=== PATIENT | female | born 1980 | race Caucasian/White ===

== ENCOUNTER 2018-10-06 22:33 | Emergency (ER) | payer BC, SELFPAY ==
[2018-10-06 22:37] VITALS: BP 149/79; PULSE 85; RESP 16; TEMP 36.4; O2SAT 99
--- NOTE | 2018-10-06 23:09 | ED.GENADUL_ITS ---
Discharge Plan Disposition Patient Disposition: HOME Condition: Stable Discharge Details Chief Complaint: EarProblem Clinical Impression: Acute right otitis media, Acute suppur right otitis media w/spontan rupture of tympanic membrane Primary Care Provider: Aissatou De Leon ED Provider: Rich Cuellar Home Meds and New Rx's Prescriptions: New amoxicillin 500 mg tablet 500 mg PO TID Qty: 30 RF: 0 No Action acetaminophen [Tylenol] 325 MG tablet 325 - 650 mg PO PRN RF: 0 prochlorperazine maleate 5 MG tablet 5 mg PO Q8H PRN Qty: 90 RF: 6 magnesium 200 MG tablet 2 tab-cap PO DAILY RF: 0 cholecalciferol (vitamin D3) [Vitamin D3] 2,000 UNIT capsule 1 cap PO DAILY RF: 0 levothyroxine 50 MCG tablet 50 mcg PO DAILY Qty: 90 RF: 4 sumatriptan succinate [Imitrex] 50 MG tablet 50 mg PO PRN PRNRF: 0 Discharge Instructions Instructions: Otitis Media (ED) Additional Instructions: Follow up with your primary care provider this week for recheck if you have pain you can take 1000mg tylenol and 600mg ibuprofen every 6 hours for pain as needed if you have severe worsening of pain or new symptoms such as difficulty breathing return to the emergency department Medical Decision Making 38 yo female comes in with few days of nasal congestion and tonight had right ear pain then drainage. Has drainage from the right ear and ruptured tm with erythema, suspect she had acute otitis media and had rupture of this. No findings to suggest otitis exeterna or mastoiditis. Will start abx, advised f/u with pcp and return if worsening Differential Diagnosis acute otitis media, ruptured tm HPI General Mode of arrival: ambulatory . Date/Time Provider Initiated Documentation: 10/06/18 22:38 . Limitations to Documentation: no limitations . Information obtained by: patient . History of Present Illness 38 year old F presents to the emergency department with the chief complaint of right ear pain, described as moderate, with intensity rated at 5. Quality is described as aching, Patient started experiencing this hour(s) (4) and it has been constant. No relieving factors improve symptom(s), No exacerbating factors reported . Patient did receive the following treatments prior to arrival, none Related Data Home Medications Medication Instructions Recorded Confirmed acetaminophen [Tylenol] 325 - 650 mg PO PRN tab-cap 11/03/14 10/06/18 prochlorperazine maleate 5 mg PO Q8H PRN #90 tab-cap 11/11/14 10/06/18 sumatriptan succinate [Imitrex] 50 mg PO PRN PRN 01/12/16 10/06/18 cholecalciferol (vitamin D3) 1 cap PO DAILY 03/03/17 10/06/18 [Vitamin D3] magnesium 2 tab-cap PO DAILY 03/03/17 10/06/18 levothyroxine 50 mcg PO DAILY #90 tab 09/19/17 10/06/18 amoxicillin 500 mg PO TID #30 tab 10/06/18 Previous Rx's Medication Instructions Recorded levothyroxine 50 mcg PO DAILY #90 tab 09/19/17 amoxicillin 500 mg PO TID #30 tab 10/06/18 Allergies Allergy/AdvReac Type Severity Reaction Status Date / Time BEE STINGS Allergy Severe ANAPHYLAXSI Uncoded 10/06/18 22:39 S Review of Systems Review of Systems All systems reviewed & are unremarkable except as noted in HPI and below Constitutional Denies weakness Eyes Denies loss of vision Cardiovascular Denies chest pain and Denies dyspnea Respiratory Denies dyspnea Gastrointestinal Denies abdominal pain, Denies nausea and Denies vomiting Genitourinary Denies dysuria Neurologic Denies loss of vision and Denies weakness Endocrine Denies heat intolerance PFSH Medical History History of kidney stones Hx pulmonary embolism Migraine Surgical History Ligation of fallopian tube Family History Mother No problems noted. Father Essential hypertension Migraine Hyperlipidemia Social History Smoking/Tobacco Use Status: Never Exam Const General: no acute distress Orientation: alert HENMT Head: normal to inspection Ears: external ears normal General nose exam: external nose normal Mouth: moist mucous membranes Eyes General: appearance normal, both eyes and all related structures Neck Neck: normal visual inspection Resp Effort & Inspection: normal respiratory effort and able to speak in complete sentences Cardio Rate: regular rate Skin General skin exam: no rashes or lesions noted Neuro General: alert and oriented x3 Extrem General: normal to inspection Psych Mental Status: mental status grossly normal
[2018-10-06] MEDS: Amoxicillin 500 MG CAP PO (23:11)
== END 2018-10-06 23:21 | disposition home or self-care (01) ==
LOC: ER 23:25
PROVIDERS: Emergency Provider Emergency Medicine; PCP Nurse Practitioner Family
DX: H66.011 Acute suppurative otitis media with spontaneous rupture of ear drum, right ear (principal)
CPT/HCPCS: 99283

== ENCOUNTER 2018-11-01 13:39 | Outpatient (REF) | payer BC, SELFPAY | END 2018-11-01 13:59 | LOC: LBN 13:39 | PROVIDERS: PCP Nurse Practitioner Family; Visit Provider Otolaryngology | DX: H66.001 Acute suppurative otitis media without spontaneous rupture of ear drum, right ear (principal) | CPT/HCPCS: 87070 ==

== ENCOUNTER 2020-07-20 16:16 | Outpatient (REF) | payer OTHER, SELFPAY ==
[2020-07-20 18:12] LABS: HCT 38.8 % (36.0-46.0); MCH 29.5 pg (27.0-33.0); MCHC 33.5 % (32.0-36.0); MCV 88.2 fL (80-95); MPV 10.9 fL (8.0-11.0); Platelet Count 243 10^3/uL (130-400); RDW 12.2 % (11.7-14.6); RDW-SD 39.4 fL; WBC 7.03 10^3/uL (4.4-10.8)
[2020-07-20 18:34] LABS: ALT 34 U/L (14-59); AST 17 U/L (15-37); Albumin 4.1 g/dL (3.4-5.0); Alkaline Phosphatase 49 U/L (46-116); Anion Gap 7.4 mmol/L (3-11); BUN 11 mg/dL (7-18); Bilirubin, Total 0.6 mg/dL (0.2-1.0); CO2 28.6 mmol/L (21.0-32.0); CREATININE 0.65 mg/dL (0.55-1.02); Calcium 9.3 mg/dL (8.5-10.1); Chloride 103 mmol/L (98-107); Glucose 88 mg/dL (74-106); Potassium 3.7 mmol/L (3.5-5.1); Sodium 139 mmol/L (136-145); TSH (W/Ref FT4) 2.33 uIU/mL (0.36-3.74); Total Protein 7.2 g/dL (6.4-8.2)
== END 2020-07-20 16:36 ==
LOC: NCHCN 16:16
PROVIDERS: PCP Nurse Practitioner Family; Visit Provider Nurse Practitioner Family
DX: B35.1 Tinea unguium (principal); N91.2 Amenorrhea, unspecified; G47.00 Insomnia, unspecified; E03.9 Hypothyroidism, unspecified
CPT/HCPCS: 80053; 85027; 84443

== ENCOUNTER 2020-11-12 06:46 | Emergency (ER) | payer OTHER, SELFPAY ==
--- NOTE | 2020-11-12 06:53 | W.ED.GENAD ---
Discharge Plan Disposition Patient Disposition: HOME Condition: Stable Discharge Details Clinical Impression: Cervical paraspinal muscle spasm Primary Care Provider: Kristie Will ED Provider: Satish Drew Home Meds and New Rx's Prescriptions: New methocarbamol 500 mg tablet 500 - 1,000 mg PO Q6H PRN (Reason: Back pain or spasm) Qty: 14 RF: 0 Continued acetaminophen [Tylenol] 325 MG tablet 325 - 650 mg PO PRN RF: 0 prochlorperazine maleate 5 MG tablet 5 mg PO Q8H PRN Qty: 90 RF: 6 magnesium 200 MG tablet 2 tab-cap PO DAILY RF: 0 cholecalciferol (vitamin D3) [Vitamin D3] 2,000 UNIT capsule 1 cap PO DAILY RF: 0 sumatriptan succinate [Imitrex] 50 MG tablet 50 mg PO PRN PRNRF: 0 Discharge Instructions Instructions: Spasmodic Torticollis (ED) Additional Instructions: Your CAT scan did not show any acute abnormalities. May take methocarbamol, as prescribed, as needed for muscle pain and spasm. Do not take alcohol or other drugs with this medication. Tylenol and ibuprofen as needed for pain. Warm, moist heat to area and gentle massage. Return to the ER for a fever, swelling, difficulty with speech or voice, or any other acute concerns. Stand Alone Forms: Physical Therapy Referral, Work Release Medical Decision Making <Gerald Porter DO - Last Filed: 11/12/20 07:14> 40-year-old female with past medical history of previous pulmonary embolism, kidney stones, migraine, tubal ligation presents today for evaluation of left neck pain. Patient states for the last day and 1/2 to 2 days she has had a gradual worsening of left-sided neck pain and stiffness, she has been massaging it and taking ibuprofen but this has not changed her symptoms. Over the last 12 hours it has become severe, with debilitating pain if she moves her neck in any direction. Pain is located in the left neck extending from the mid sternocleidomastoid to the base of the sternocleidomastoid. She denies any ear pain, vision changes, fever, chills, upper extremity weakness, numbness tingling. No other complaints at this time. No history of symptoms like this in the past. Physical exam demonstrates a tender but not spasmed sternocleidomastoid on the left. Notable pain in the SCM with movement of the neck in any direction, no meningeal mass, or signs of Ludewig's angina. No erythema. Differential includes atypical muscle spasm, or underlying mass or abscess. We will get a CT scan of the neck, give Valium, Toradol, monitor closely and reassess. <Satish Drew MD - Last Filed: 11/12/20 08:31> Received signout from Dr. Porter. Patient improved and with less pain in her neck. She does have left-sided muscular neck spasm present. Her CAT scan was unremarkable for process. We will treat with methocarbamol, heat, physical therapy if needed in 2 days off work. She is stable for discharge to home. HPI <Gerald Porter DO - Last Filed: 11/12/20 07:14> General Date/Time Provider Initiated Documentation: 11/12/20 06:52. HPI Narrative: 40-year-old female with past medical history of previous pulmonary embolism, kidney stones, migraine, tubal ligation presents today for evaluation of left neck pain. Patient states for the last day and 1/2 to 2 days she has had a gradual worsening of left-sided neck pain and stiffness, she has been massaging it and taking ibuprofen but this has not changed her symptoms. Over the last 12 hours it has become severe, with debilitating pain if she moves her neck in any direction. Pain is located in the left neck extending from the mid sternocleidomastoid to the base of the sternocleidomastoid. She denies any ear pain, vision changes, fever, chills, upper extremity weakness, numbness tingling. No other complaints at this time. No history of symptoms like this in the past. Related Data Home Medications Medication Instructions Recorded Confirmed acetaminophen [Tylenol] 325 - 650 mg PO PRN tab-cap 11/03/14 11/12/20 prochlorperazine maleate 5 mg PO Q8H PRN #90 tab-cap 11/11/14 11/12/20 sumatriptan succinate [Imitrex] 50 mg PO PRN PRN 01/12/16 11/12/20 cholecalciferol (vitamin D3) 1 cap PO DAILY 03/03/17 11/12/20 [Vitamin D3] magnesium 2 tab-cap PO DAILY 03/03/17 11/12/20 methocarbamol 500 - 1,000 mg PO Q6H PRN #14 tab 11/12/20 Previous Rx's Medication Instructions Recorded methocarbamol 500 - 1,000 mg PO Q6H PRN #14 tab 11/12/20 Allergies Allergy/AdvReac Type Severity Reaction Status Date / Time BEE STINGS Allergy Severe ANAPHYLAXSI Uncoded 11/12/20 07:10 S General RITU: 4 Review of Systems <Gerald Porter DO - Last Filed: 11/12/20 07:14> All systems reviewed & are unremarkable except as noted in HPI and below PFSH <Gerald Porter DO - Last Filed: 11/12/20 07:14> Medical History (Updated 11/12/20 @ 08:28 by Satish Drew MD) History of kidney stones Hx pulmonary embolism Migraine Surgical History Ligation of fallopian tube Family History Mother No problems noted. Father Essential hypertension Migraine Hyperlipidemia Social History Smoking/Tobacco Use Status: Never Smoking risk assessment performed?: Yes Alcohol Intake: never Drug use: Never Substance use type: does not use Do you feel safe in your relationship?: Yes Exam <Gerald Porter DO - Last Filed: 11/12/20 07:14> Narrative Exam Narrative: 1.Const: Well-nourished, Well-developed, appearing stated age 2.Eyes: PERRL, no conjunctival injection, and symmetrical lids. 3.ENT: Atraumatic external nose and ears. Moist MM. Neck: Symmetric, trachea midline, No thyromegaly. No evidence of Ludewig's angina, no erythema in the posterior oropharynx. No abnormality in the tympanic membrane or ear canal. Mild tenderness throughout the entirety of the sternocleidomastoid muscle, notable pain with movement in any direction of the neck isolated to the sternocleidomastoid muscle. No nuchal rigidity or signs of meningismus. 4.CVS: +S1/S2, No murmurs or gallops. Peripheral pulses 2+ and equal in all extremities. Brisk capillary refill in all extremities. 5.RESP: Unlabored respiratory effort. Clear to auscultation bilaterally. No wheezes rales or rhonchi 6.GI: Soft, Nontender/Nondistended, No hepatosplenomegaly. No guarding or rebound. 7.MSK: Normocephalic/Atraumatic, Extremities w/o deformity or ttp No cyanosis or clubbing, Normal movement of all extremities, normal strength in the upper extremities. 8.Skin: Warm, Dry. No rashes or lesions. 9.Neuro: profiling machine set up operator II-XII grossly intact. Sensation grossly intact, no focal neurologic deficits. 10.Psych: (AAO) x3. Appropriate mood and affect Sign Out <Gerald Porter DO - Last Filed: 11/12/20 07:14> Sign Out Data: Sign Out Comment: Left neck pain/spasm, notably severe, given Valium, NSAIDs, CT scan to rule out mass Last updated by Gerald Porter DO at 11/12/20 07:43
[2020-11-12 06:54] VITALS: BP 161/78; PULSE 82; RESP 16; TEMP 36.5; O2SAT 99
[2020-11-12] MEDS: diazePAM 10 MG/2 ML SYR 5 MG IVP (07:20)
[2020-11-12] MEDS: Normal Saline 1,000 ML 1000 ML IV (07:20)
[2020-11-12] MEDS: Ketorolac 30 MG/ML VIAL IVP (07:25)
[2020-11-12] MEDS: ACETAMINOPHEN 1,000 MG/100 ML BTL 400 MG IVPB (07:32)
[2020-11-12 07:33] LABS: Abs Immature Grans 0.03 10^3/uL (0.0-0.06); Absolute Basophil Count 0.03 10^3/uL (0.0-0.2); Absolute Eosinophil Count 0.12 10^3/uL (0.0-0.7); Absolute Lymphocyte Count 1.52 10^3/uL (1.2-3.4); Absolute Monocyte Count 0.49 10^3/uL (0.1-0.8); Absolute Neutrophil Count 6.06 10^3/uL (1.2-6.7); Basophils % 0.4; Eosinophils % 1.5; HCT 42.7 % (36.0-46.0); Immature Grans % 0.4; Lymphocytes % 18.4; MCH 29.2 pg (27.0-33.0); MCHC 32.8 % (32.0-36.0); MCV 89.1 fL (80-95); MPV 10.4 fL (8.0-11.0); Monocytes % 5.9; Neutrophils % 73.4; Nucleated RBC 0 %; Platelet Count 235 10^3/uL (130-400); RBC 4.79 10^6/uL (3.93-5.22); RDW 11.8 % (11.7-14.6); RDW-SD 38.5 fL; WBC 8.25 10^3/uL (4.4-10.8)
[2020-11-12 07:46] LABS: ALT 24 U/L (14-59); AST 14 U/L (15-37); Albumin 3.7 g/dL (3.4-5.0); Alkaline Phosphatase 61 U/L (46-116); Anion Gap 7.2 mmol/L (3-11); BUN 9 mg/dL (7-18); Bilirubin, Total 0.4 mg/dL (0.2-1.0); CO2 28.8 mmol/L (21.0-32.0); CREATININE 0.6 mg/dL (0.55-1.02); Calcium 8.6 mg/dL (8.5-10.1); Chloride 104 mmol/L (98-107); Glucose 97 mg/dL (74-106); Potassium 3.8 mmol/L (3.5-5.1); Sodium 140 mmol/L (136-145); Total Protein 7.5 g/dL (6.4-8.2)
[2020-11-12] MEDS: Omnipaque 350 MG/ML 100 ML BTL IJ (07:47)
--- NOTE | 2020-11-12 07:48 | DI.CT_ITS ---
EXAM: CT NECK W CLINICAL HISTORY: left severe neck pain. TECHNIQUE: Imaging Protocol: Axial computed tomography images with coronal and sagittal reformatted images were created and reviewed CONTRAST MATERIAL: Intravenous: Omnipaque 350 Contrast volume: 100 cc COMPARISON: No exams were available for comparison FINDINGS: Parotids/submandibular/thyroid gland: Normal. Lymphadenopathy: There is scattered lymph nodes seen along the level one to level three all measurin g less than 8 mm in short axis diameter which are physiologic in nature. Carotids/Jugular: Within normal limits. Soft tissues: The floor the mouth is unremarkable. The epiglottis and vocal cords are within normal limits. Images through both lung apices are unremarkable. No gross abnormality is seen in the visua lized portion of the brain or orbits. Visualized portions of the sinuses and mastoid air cells appea r clear. Bones: Mild degenerative disc changes, greatest at C5-6. Mild facet joint degenerative changes. Mil d neural foraminal narrowing on the right at C3-4 through C5-6. No disc herniation is visible. IMPRESSION: Mild degenerative changes of the cervical spine. No acute abnormality is seen. RADIATION DOSE DELIVERED: 485.36mGy.cm Total DLP DATA REPOSITORY: All CT scans at this facility are submitted to the National Radiology Data Registry (NRDR) Dose Index Registry (DIR) with the [employer] ([employer]). RADIATION OPTIMIZATION: All CT scans at this facility use at least one of these dose optimization te chniques: automated exposure control; mA and/or kV adjustment per patient size (includes targeted exa ms where dose is matched to clinical indication); or iterative reconstruction.
[2020-11-12] MEDS: Normal Saline - Diluent 50 ML VIAL IV (07:57)
--- NOTE | 2020-11-12 08:05 | DI.VRAD_ITS ---
PROCEDURE INFORMATION: Exam: CT Neck With Contrast Exam date and time: 11/12/2020 7:03 AM Age: 40 years old Clinical indication: Patient HX: Left severe neck pain x 2 days. TECHNIQUE: Imaging protocol: Computed tomography images of the neck with intravenous contrast. Radiation optimization: All CT scans at this facility use at least one of these dose optimization techniques: automated exposure control; mA and/or kV adjustment per patient size (includes targeted exams where dose is matched to clinical indication); or iterative reconstruction. Contrast material: 350; Contrast volume: 100 ml; Contrast route: INTRAVENOUS (IV); COMPARISON: No relevant prior studies available. FINDINGS: Nasopharynx: Unremarkable. Oropharynx: Unremarkable. No significant tonsillar enlargement. Hypopharynx: Unremarkable. Larynx: Unremarkable. Normal epiglottis. Retropharyngeal space: Unremarkable. Submandibular/Parotid glands: Normal. Glands are normal in size. Thyroid: Normal. No enlarged or calcified nodules. Lymph nodes: Unremarkable. No lymphadenopathy. Trachea: Visualized trachea is unremarkable. Lungs: Unremarkable as visualized. Bones/joints: Unremarkable. No acute fracture. Soft tissues: Unremarkable. No significant soft tissue swelling. IMPRESSION: No acute findings. Dictated and Authenticated by: Gideon De La Rosa MD. Ordering:SHON Duarte MD
[2020-11-12 08:30] VITALS: BP 134/58; PULSE 78; RESP 16; TEMP 36.4; O2SAT 97
== END 2020-11-12 08:37 | disposition home or self-care (01) ==
PROVIDERS: Student in an Organized Health Care Education/Training Program; Emergency Provider Emergency Medicine; PCP Nurse Practitioner Family
DX: G24.3 Spasmodic torticollis (principal)
CPT/HCPCS: 36415; 70491; 80053; 96361; 96365; 96375; 99285; 85025; 99284; J0131; J1885; J3360; J3490

== ENCOUNTER 2020-11-12 22:21 | Emergency (ER) | payer OTHER, SELFPAY ==
[2020-11-12 22:25] VITALS: PULSE 88; RESP 18; TEMP 36.8; O2SAT 100
--- NOTE | 2020-11-12 22:26 | ED.GENADUL_ITS ---
Discharge Plan Disposition Patient Disposition: HOME Condition: Good Discharge Details Clinical Impression: Cervical paraspinal muscle spasm Primary Care Provider: Kristie Will ED Provider: Dimitry Sprague Meds and New Rx's Prescriptions: New diazepam 5 mg tablet 5 mg PO TID PRN (Reason: muscle spasm) Qty: 15 RF: 0 ibuprofen 600 mg tablet 600 mg PO Q8H PRN (Reason: pain) Qty: 30 RF: 0 lidocaine 5 % adhesive patch,medicated 1 patch topical DAILY PRN (Reason: pain) Qty: 15 RF: 0 Continued magnesium 200 MG tablet 2 tab-cap PO DAILY RF: 0 cholecalciferol (vitamin D3) [Vitamin D3] 2,000 UNIT capsule 1 cap PO DAILY RF: 0 Changed acetaminophen [Tylenol] 325 MG tablet 1,000 mg PO Q8H PRN (Reason: pain) Qty: 0 RF: 0 Discontinued methocarbamol 500 mg tablet 500 - 1,000 mg PO Q6H PRN (Reason: Back pain or spasm) Qty: 14 RF: 0 Discharge Instructions Instructions: Spasmodic Torticollis (ED) Additional Instructions: Continue to use heat. Discontinue methocarbamol. Begin using diazepam for spasm. Continue to alternate acetaminophen with ibuprofen, taking each every 4 hours in alternating fashion. Gentle massage when able to tolerate. Lidoderm patch to help with discomfort. Follow-up with primary care next week. Return to ED for new or worsening symptoms. Referrals: Kristie Will [Primary Care Provider] - Medical Decision Making Patient with continued spasm/torticollis with severe pain. Has not responded to heat, Robaxin, Tylenol, Motrin. Previous work-up this morning unremarkable. We will try Lidoderm patch and Parrott here at this time. Patient with minimal relief with Lidoderm patch and Parrott. Given IM Toradol and p.o. Valium with much better affect. Will discontinue Robaxin. Will start Valium as a muscle relaxer. Continue Lidoderm patch. Continue alternating Tylenol with Motrin. Follow-up with primary care next week. Return to ED for any new or worsening symptoms. Medical Records Medical records reviewed: Yes I reviewed the patient's medical records. HPI General Mode of arrival: ambulatory . Date/Time Provider Initiated Documentation: 11/12/20 22:22 . Limitations to Documentation: no limitations . Information obtained by: patient, RN notes reviewed and old records reviewed . HPI Narrative: Patient presents to ED with continued severe left-sided neck pain. She was seen here a little over 12 hours ago. Work-up including CT scan of the neck and laboratory studies unremarkable. Treated here with Valium and Toradol and felt better. Discharged on Robaxin. Has been taking Tylenol, Motrin, Robaxin with no relief. Has been using heat. Continues to be unable to really move her head in any way. Has no new symptoms. Specifically denies fever, difficulty swallow ing, sore throat, difficulty breathing, numbness, weakness. Related Data Home Medications Medication Instructions Recorded Confirmed cholecalciferol (vitamin D3) 1 cap PO DAILY 03/03/17 11/12/20 [Vitamin D3] magnesium 2 tab-cap PO DAILY 03/03/17 11/12/20 diazepam 5 mg PO TID PRN #15 tab 11/12/20 acetaminophen [Tylenol] 1,000 mg PO Q8H PRN #0 tab-cap 11/13/20 11/12/20 ibuprofen 600 mg PO Q8H PRN #30 tab 11/13/20 lidocaine 1 patch TOPICAL DAILY PRN #15 ea 11/13/20 Previous Rx's Medication Instructions Recorded diazepam 5 mg PO TID PRN #15 tab 11/12/20 acetaminophen [Tylenol] 1,000 mg PO Q8H PRN #0 tab-cap 11/13/20 ibuprofen 600 mg PO Q8H PRN #30 tab 11/13/20 lidocaine 1 patch TOPICAL DAILY PRN #15 ea 11/13/20 Allergies Allergy/AdvReac Type Severity Reaction Status Date / Time BEE STINGS Allergy Severe ANAPHYLAXSI Uncoded 11/12/20 07:10 S General RITU: 4 Review of Systems Narrative: As documented in HPI otherwise negative as below. Const: no fever, chills Resp: no cough, SOB Neuro: no headache, numbness, focal weakness, confusion PFSH Medical History (Updated 11/12/20 @ 23:57 by Dimitry Sprague MD) History of kidney stones Hx pulmonary embolism Migraine Surgical History Ligation of fallopian tube Family History Mother No problems noted. Father Essential hypertension Migraine Hyperlipidemia Social History Smoking/Tobacco Use Status: Never Smoking risk assessment performed?: Yes Alcohol Intake: never Drug use: Never Substance use type: does not use Current gender identity: female Do you feel safe at home: Yes Do you feel safe in your relationship?: Yes Exam Narrative Exam Narrative: Const: WDWN female, very uncomfortable with head turned to right/downward. HEENT: NC/AT. Normal facial exam. Neck: Trachea midline. Neck spasm/tenderness along the left lateral strap muscles. Lungs: Normal respiratory effort. Cor: RRR without murmur/gallop. Neuro: A+O x 3. Normal speech, mentation, gait. Cranial nerves II - XII grossly intact. No gross motor or sensory deficit.
[2020-11-12] MEDS: HYDROcodone 5/Acetaminophen 325 TAB PO (22:43)
[2020-11-12] MEDS: Lidocaine 5% Patch 1 PATCH TP (22:44)
[2020-11-12] MEDS: diazePAM 5 MG TAB PO (23:27)
[2020-11-12] MEDS: Ketorolac 30 MG/ML VIAL IM (23:28)
[2020-11-13 00:05] VITALS: BP 155/83; PULSE 72; RESP 18; O2SAT 98
[2020-11-13] MEDS: diazePAM 5 MG TAB PO (00:11)
== END 2020-11-13 00:11 | disposition home or self-care (01) ==
PROVIDERS: Emergency Provider Emergency Medicine; PCP Nurse Practitioner Family
DX: G24.3 Spasmodic torticollis (principal)
CPT/HCPCS: 96372; 99284; 99283; J1885

== ENCOUNTER 2022-05-12 19:12 | Outpatient (REF) | payer OTHER, SELFPAY ==
[2022-05-12 19:47] LABS: Abs Immature Grans 0.01 10^3/uL (0.0-0.06); Absolute Basophil Count 0.05 10^3/uL (0.0-0.2); Absolute Eosinophil Count 0.07 10^3/uL (0.0-0.7); Absolute Lymphocyte Count 1.54 10^3/uL (1.2-3.4); Absolute Monocyte Count 0.37 10^3/uL (0.1-0.8); Absolute Neutrophil Count 4.88 10^3/uL (1.2-6.7); Basophils % 0.7; HGB 14.4 g/dL (11.2-15.7); Immature Grans % 0.1; Lymphocytes % 22.3; MCH 29.6 pg (27.0-33.0); MCHC 33.5 % (32.0-36.0); MCV 88 fL (80-95); Monocytes % 5.3; Neutrophils % 70.6; RBC 4.87 10^6/uL (3.93-5.22); RDW 12.1 % (11.7-14.6); RDW-SD 39.2 fL; WBC 6.92 10^3/uL (4.4-10.8)
[2022-05-12 21:44] LABS: ALT 32 U/L (14-59); AST 19 U/L (15-37); Albumin 4.2 g/dL (3.4-5.0); Alkaline Phosphatase 53 U/L (46-116); Anion Gap 9.7 mmol/L (3-11); BUN 11 mg/dL (7-18); Bilirubin, Total 0.8 mg/dL (0.2-1.0); C-Reactive Protein 0.09 mg/dL (0.0-0.3); CO2 28.3 mmol/L (21.0-32.0); CREATININE 0.6 mg/dL (0.55-1.02); Calcium 8.9 mg/dL (8.5-10.1); Chloride 104 mmol/L (98-107); Creatine Kinase 81 U/L (26-192); Glucose 80 mg/dL (74-106); Potassium 3.9 mmol/L (3.5-5.1); Sodium 142 mmol/L (136-145); TSH 1.04 uIU/mL (0.36-3.74); Total Protein 7.5 g/dL (6.4-8.2)
[2022-05-13 18:03] LABS: Rheumatoid Factor <8.6 IU/mL (<12.0)
[2022-05-13 18:21] LABS: T3,Free 2.9 pg/mL (2.8-5.3)
[2022-05-13 18:35] LABS: T3, Total 117 ng/dL (97-169)
[2022-05-16 15:29] LABS: ANA Interpretation Positive (Negative); ANA Titer Pattern 1:320 Homogeneous
== END 2022-05-12 19:13 | disposition home or self-care (01) ==
LOC: NCHCN 19:12
PROVIDERS: PCP Nurse Practitioner Family; Visit Provider Nurse Practitioner Family
DX: L80 Vitiligo (principal); Z82.61 Family history of arthritis; E03.9 Hypothyroidism, unspecified
CPT/HCPCS: 80053; 82550; 85652; 84439; 84443; 84480; 84481; 85025; 86038; 86140; 86431

== ENCOUNTER 2022-05-30 17:49 | Outpatient (REF) | payer OTHER, SELFPAY ==
[2022-06-01 09:34] LABS: Cyclic Citrullinated Peptide <2.5 U/mL (<5.0)
== END 2022-05-30 17:50 | disposition home or self-care (01) ==
LOC: NCHCN 17:49
PROVIDERS: PCP Nurse Practitioner Family; Visit Provider Nurse Practitioner Family
DX: Z82.61 Family history of arthritis (principal)
CPT/HCPCS: 86200

== ENCOUNTER 2022-06-13 15:43 | Emergency (ER) | payer OTHER, SELFPAY ==
[2022-06-13] MEDS: Ondansetron 4 MG/2 ML VIAL IVP ×2 (16:06→20:00)
[2022-06-13] MEDS: HYDROmorphone 2 MG/ML SYR 1 MG IVP ×4 (16:07→20:55)
[2022-06-13] MEDS: Normal Saline 1,000 ML 1000 ML IV ×2 (16:08→17:00)
[2022-06-13 16:21] LABS: Source Nasal/Nares
[2022-06-13] MEDS: Ketorolac 15 MG/ML VIAL IVP (16:29)
[2022-06-13 16:58] LABS: COVID-19 PCR Negative (Negative)
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
[2022-06-13 17:04] LABS: Abs Immature Grans 0.05 10^3/uL (0.0-0.06); Absolute Basophil Count 0.04 10^3/uL (0.0-0.2); Absolute Eosinophil Count 0.09 10^3/uL (0.0-0.7); Absolute Monocyte Count 0.64 10^3/uL (0.1-0.8); Absolute Neutrophil Count 6.51 10^3/uL (1.2-6.7); Basophils % 0.4; Eosinophils % 0.9; HCT 40.2 % (36.0-46.0); HGB 13.9 g/dL (11.2-15.7); Immature Grans % 0.5; Lymphocytes % 26.2; MCH 29.9 pg (27.0-33.0); MCHC 34.6 % (32.0-36.0); MCV 87 fL (80-95); MPV 11.7 fL (8.0-11.0); Monocytes % 6.4; Neutrophils % 65.6; Platelet Count 222 10^3/uL (130-400); RBC 4.65 10^6/uL (3.93-5.22); RDW 12.2 % (11.7-14.6); RDW-SD 38.2 fL; WBC 9.93 10^3/uL (4.4-10.8)
[2022-06-13 17:21] LABS: ALT 24 U/L (14-59); AST 15 U/L (15-37); Alkaline Phosphatase 54 U/L (46-116); Anion Gap 11.9 mmol/L (3-11); BUN 13 mg/dL (7-18); Bilirubin, Total 0.3 mg/dL (0.2-1.0); CO2 24.1 mmol/L (21.0-32.0); CREATININE 0.7 mg/dL (0.55-1.02); Chloride 102 mmol/L (98-107); Estimated GFR 110.67 (mL/min/1.73m2); Glucose 118 mg/dL (74-106); Sodium 138 mmol/L (136-145); Total Protein 7.8 g/dL (6.4-8.2)
[2022-06-13] MEDS: Potassium Chloride 20 MEQ TABCR 40 MEQ PO (17:50)
[2022-06-13 18:23] VITALS: BP 150/91; PULSE 106; RESP 16; TEMP 36.5; O2SAT 98
[2022-06-13] MEDS: Normal Saline 1,000 ML 150 ML IV (18:46)
[2022-06-13 20:14] VITALS: BP 156/86; PULSE 103; RESP 16; TEMP 36.8; O2SAT 98
[2022-06-13 21:25] VITALS: BP 156/86; PULSE 103; RESP 16; TEMP 36.8; O2SAT 98
== END 2022-06-13 21:26 ==
PROVIDERS: Emergency Provider Nurse Practitioner Family; PCP Nurse Practitioner Family
DX: T20.00XA Burn of unspecified degree of head, face, and neck, unspecified site, initial encounter (principal); T20.07XA Burn of unspecified degree of neck, initial encounter; T21.01XA Burn of unspecified degree of chest wall, initial encounter; T22.012A Burn of unspecified degree of left forearm, initial encounter; T22.011A Burn of unspecified degree of right forearm, initial encounter; T21.04XA Burn of unspecified degree of lower back, initial encounter; T31.20 Burns involving 20-29% of body surface with 0% to 9% third degree burns; Z20.822 Contact with and (suspected) exposure to COVID-19; X13.1XXA Other contact with steam and other hot vapors, initial encounter
CPT/HCPCS: 80053; 87635; 96361; 96374; 96375; 96376; 99284; 85025; J1170; J1885; J2405

== ENCOUNTER 2023-01-19 14:44 | Outpatient (REF) | payer OTHER, SELFPAY ==
[2023-01-19 15:11] LABS: Abs Immature Grans 0.02 10^3/uL (0.0-0.06); Absolute Basophil Count 0.04 10^3/uL (0.0-0.2); Absolute Eosinophil Count 0.12 10^3/uL (0.0-0.7); Absolute Lymphocyte Count 1.67 10^3/uL (1.2-3.4); Absolute Monocyte Count 0.39 10^3/uL (0.1-0.8); Absolute Neutrophil Count 4.52 10^3/uL (1.2-6.7); Basophils % 0.6; Eosinophils % 1.8; HGB 13.6 g/dL (11.2-15.7); Immature Grans % 0.3; Lymphocytes % 24.7; MCH 29.4 pg (27.0-33.0); MCHC 33.2 % (32.0-36.0); MCV 89 fL (80-95); MPV 11.2 fL (8.0-11.0); Monocytes % 5.8; Neutrophils % 66.8; Platelet Count 223 10^3/uL (130-400); RBC 4.63 10^6/uL (3.93-5.22); RDW 11.9 % (11.7-14.6); RDW-SD 38.5 fL; WBC 6.76 10^3/uL (4.4-10.8)
[2023-01-19 16:01] LABS: Hemoglobin A1C 4.8 % (<5.7)
[2023-01-19 16:32] LABS: ALT 29 U/L (14-59); AST 17 U/L (15-37); Albumin 4.2 g/dL (3.4-5.0); Alkaline Phosphatase 48 U/L (46-116); Anion Gap 12.4 mmol/L (3-11); BUN 14 mg/dL (7-18); Bilirubin, Total 0.4 mg/dL (0.2-1.0); CO2 29.6 mmol/L (21.0-32.0); CREATININE 0.6 mg/dL (0.55-1.02); Calculated LDL 152 mg/dL (<100); Chloride 102 mmol/L (98-107); Cholesterol 235 mg/dL (<200); Estimated GFR 114.86 (mL/min/1.73m2); Glucose 88 mg/dL (74-106); HDL Cholesterol 72 mg/dL (40-60); Potassium 4.7 mmol/L (3.5-5.1); Sodium 144 mmol/L (136-145); TSH (W/Ref FT4) 1.31 uIU/mL (0.36-3.74); Total Protein 7.4 g/dL (6.4-8.2); Triglyceride 56 mg/dL (<150)
== END 2023-01-19 14:45 | disposition home or self-care (01) ==
LOC: NCHCN 14:44
PROVIDERS: PCP Nurse Practitioner Family; Visit Provider Family Medicine
DX: R63.5 Abnormal weight gain (principal); F32.89 Other specified depressive episodes; E03.9 Hypothyroidism, unspecified; E66.8 Other obesity; Z68.32 Body mass index [BMI] 32.0-32.9, adult; Z13.1 Encounter for screening for diabetes mellitus; R53.83 Other fatigue
CPT/HCPCS: 80053; 80061; 83036; 84443; 85025

== ENCOUNTER 2023-04-27 18:33 | Outpatient (REF) | payer OTHER, SELFPAY ==
--- NOTE | 2023-04-27 10:45 | PAPFT_PTH ---
PATIENT: Aysha Rooney LOC: [facility] U#:[id number] AGE/SX: 42/F ROOM: RE04/27/[address]: AGUSTINA GUNDERSNO : 1980 BED: DIS: 04/27/2023 SPEC #: [id number] RECD: 04/27/23 18:37 STATUS: BENI REQ #: [id number] ZI: 04/27/23 10:[address]: Agustina Gunderson DEPT: [facility] Cytology RECD BY: Shama Painter ENTERED: 04/27/23 18:38 SP TYPE: PAPFT OTHR DR: Kristie Will Tissues: 1 - CX/ENDOCX FOR PAP SMEARS Procedures: PAP THIN PREP/UVM Screening HPV DNA PROBE Comments: [id number]
== END 2023-04-27 18:34 | disposition home or self-care (01) ==
LOC: NCHCN 18:33
PROVIDERS: PCP Nurse Practitioner Family; Visit Provider Nurse Practitioner Family
DX: Z12.4 Encounter for screening for malignant neoplasm of cervix (principal); Z11.51 Encounter for screening for human papillomavirus (HPV)
CPT/HCPCS: 88142; 87624

== ENCOUNTER → 2023-05-22 03:49 | Outpatient (CLI) | payer OTHER, SELFPAY ==
--- NOTE | 2023-05-22 | DI.MAMMO_ITS ---
Exam(s) MAMMO SCREENING EXAM: MAMMO SCREENING CLINICAL HISTORY: SCREENING, Z12.39 TECHNIQUE: Bilateral full field digital CC and MLO mammographic images were obtained with 3D tomosyn thesis and utilizing computer aided detection (CAD). COMPARISON: This is a baseline examination. There are no priors for comparison. FINDINGS: Masses/Architectural Distortion: None seen. Microcalcifications: No suspicious pleomorphic-type are seen. Skin Thickening/Nipple Retraction: None. IMPRESSION: 1. No significant interval change with no specific features of malignancy noted. 2. Unless there is more urgent need, screening mammography is recommended, as per [employer] guidelines. BI-RADS Category 1 - Negative Breast Density - Category C - Heterogeneously dense Breast density category C or D implies that the patient has dense breast tissue. Dense breast tissue is very common and is not abnormal but dense breast tissue can make it harder to find cancer on a ma mmogram. Also, dense breast tissue may increase their breast cancer risk. This information about the result of the mammogram report was provided to the patient to raise their awareness. Use this report when you speak with the patient about their risks for breast cancer, which includes their family hist ory. At that time, you may recommend for more screening tests (Ultrasound or MRI) as they might be us eful based on their risk. A negative radiographic report should not delay biopsy if a dominant or clinically suspicious mass is present. Up to ten percent of cancers are not identified on mammography. A negative report may reinforce clinical impression. Adenosis and dense breasts may obscure an underlying neoplasm. False positive reports average 6 to 10%. Patient will receive a letter notifying them of these results.
== END ==
PROVIDERS: PCP Nurse Practitioner Family; Visit Provider Nurse Practitioner Family
DX: Z12.31 Encounter for screening mammogram for malignant neoplasm of breast (principal)
CPT/HCPCS: 77063; 77067

== ENCOUNTER 2023-07-21 20:03 | Outpatient (REF) | payer OTHER, SELFPAY ==
[2023-07-21 18:59] LABS: C-Reactive Protein 0.25 mg/dL (0.0-0.3)
[2023-07-22 11:29] LABS: ESR (LRH) 15 mm/hr
[2023-07-24 21:49] LABS: Rheumatoid Factor <8.6 IU/mL (<12.0)
[2023-07-25 10:08] LABS: Cyclic Citrullinated Peptide <2.5 U/mL (<5.0)
[2023-07-25 13:42] LABS: ANA Interpretation Negative (Negative)
== END 2023-07-21 20:04 | disposition home or self-care (01) ==
LOC: NCHCN 20:03
PROVIDERS: PCP Nurse Practitioner Family; Visit Provider Nurse Practitioner Family
DX: Z82.61 Family history of arthritis (principal)
CPT/HCPCS: 85652; 86200; 86038; 86140; 86431

== ENCOUNTER → 2023-11-24 12:57 | Outpatient (CLI) | payer OTHER, SELFPAY ==
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
== END ==
PROVIDERS: PCP Nurse Practitioner Family; Visit Provider Student in an Organized Health Care Education/Training Program
DX: S59.902A Unspecified injury of left elbow, initial encounter (principal); X58.XXXA Exposure to other specified factors, initial encounter
CPT/HCPCS: 73080

== ENCOUNTER → 2023-11-29 10:25 | Outpatient (CLI) | payer OTHER, SELFPAY ==
--- NOTE | 2023-11-29 10:00 | DI.MRI_ITS ---
Exam(s) MR UPPER JOINT LT WO EXAM: MR UPPER JOINT LT WO CLINICAL HISTORY: Latera + posterior pain weakness,injury,s59.073p. TECHNIQUE: Multiplanar multisequence MRI was performed. COMPARISON: CR XR ELBOW LT COMPLETE from 11/24/2023 FINDINGS: BONES: There is no fracture or contusion pattern. There is a 0.6 x 0.3 cm bone density at the lateral aspect of the olecranon on which likely corresponds to the finding seen on the x-ray. It shows norm al marrow signal suggesting a chronic finding. This may be a loose body. There is mild marrow edema seen in the proximal ulnar metaphysis and coronoid process. There is also mild edema seen in the pr oximal radius and radial neck. No fracture is identified. There is associated mild edema seen aroun d the radial neck. JOINTS: The articular cartilage is unremarkable. There is a joint effusion. TENDONS: Common flexors: There is mild edema seen associated with the common flexor tendons consistent with me dial epicondylitis. This can best be appreciated on the axial and sagittal images. Common extensors: Unremarkable. Biceps: Unremarkable. Triceps: Unremarkable. MUSCLES: There is mild edema seen in the supra christo muscle. MEDIAN NERVE: Unremarkable on this noncontrast examination. ULNAR NERVE: Unremarkable on this noncontrast examination. There is mild edema seen posterior mediall y superficial to the ulnar nerve. No focal fluid collection is seen. SOFT TISSUES: Unremarkable. LIGAMENTS: Ulnar collateral: Unremarkable. Radial collateral: Unremarkable. OTHER: IMPRESSION: 1. Mild edema associated with the common flexor tendons suggesting medial epicondylitis. No evidence of a tayo tear. 2. Joint effusion. 0.6 x 0.3 cm density adjacent to the lateral aspect of the olecranon which may re present a loose body. This corresponds to the finding seen on the x-ray. 3. No definite evidence of a fracture. There is edema seen in the proximal ulna and radius as descri bed above. 4. Mild edema seen around and within the these supinator muscle. No evidence of a tear. This may re present low-grade muscle injury/edema. Infection cannot be entirely excluded but is considered less likely. 5. No evidence of a biceps or triceps tear. DATA REPOSITORY:
== END ==
PROVIDERS: PCP Nurse Practitioner Family; Visit Provider Student in an Organized Health Care Education/Training Program
DX: S59.902A Unspecified injury of left elbow, initial encounter (principal); X58.XXXA Exposure to other specified factors, initial encounter
CPT/HCPCS: 73221

== ENCOUNTER 2025-07-21 02:45 | Outpatient (CLI) | payer OTHER, SELFPAY ==
--- NOTE | 2025-07-21 07:30 | DI.MAMMO_ITS ---
Exam(s) MAMMO SCREENING EXAM: MAMMO SCREENING CLINICAL HISTORY: screening, Z12.39 TECHNIQUE: Bilateral full field digital CC and MLO mammographic images were obtained with 3D tomosynthesis and utilizing computer aided detection (CAD). COMPARISON: Comparison is made with prior examinations. FINDINGS: Masses/Architectural Distortion: No suspicious masses or areas of architectural distortion are present. Microcalcifications: No suspicious pleomorphic-type are seen. Skin Thickening/Nipple Retraction: None. IMPRESSION: 1. No significant interval change with no specific features of malignancy noted. 2. Unless there is more urgent need, screening mammography is recommended, as per [place] [employer] guidelines. BI-RADS Category 1 - Negative Breast Density - Category C - The breast are heterogeneously dense, which may obscure small masses. Breast density Category C or D implies that the patient has dense breast tissue. Dense breast tissue can make it harder to find cancer on a mammogram. Dense breast tissue is also associated with an increased risk of breast cancer. This information about the result of the mammogram report was provided to the patient to raise their awareness. Use this report when you speak with the patient about their risks for breast cancer, which includes their family history. At that time, you may recommend additional screening tests (Ultrasound or MRI) as these tests may add significant information. A negative radiographic report should not delay biopsy if a dominant or clinically suspicious mass is present. Up to ten percent of cancers are not identified on mammography. A negative report may reinforce clinical impression. Adenosis and dense breasts may obscure an underlying neoplasm. False positive reports average 6 to 10%. Patient will receive a letter notifying them of these results.
== END 2025-07-21 03:05 ==
LOC: DI 02:46
PROVIDERS: PCP Nurse Practitioner Family; Visit Provider Nurse Practitioner Family
DX: Z12.31 Encounter for screening mammogram for malignant neoplasm of breast (principal)
CPT/HCPCS: 77063; 77067